=== PATIENT | female | born 1980 | race Caucasian/White ===

== ENCOUNTER 2021-05-23 08:55 | Emergency (ER) | payer OTHER ==
[~2021-05-23 08:55] MED LIST: ATENOLOL25 MG PO; HCTZ12.5 MG PO; LEXAPRO20 MG PO; PRAVACHOL20 MG PO
[2021-05-23 10:07] LABS: AMPHETAMINES NEGATIVE (NEGATIVE); BARBITURATES NEGATIVE (NEGATIVE); ECSTASY (MDMA) NEGATIVE (NEGATIVE); MARIJUANA (THC) NEGATIVE (NEGATIVE); METHADONE NEGATIVE (NEGATIVE); OPIATES NEGATIVE (NEGATIVE); OXYCODONE NEGATIVE (NEGATIVE)
[2021-05-23] MEDS ORDERED: CYCLOBENZAPRINE10 MG PO (10:36)
[2021-05-23] MEDS ORDERED: NAPROXEN500 MG PO (10:36)
[2021-05-23] MEDS ORDERED: RIZATRIPTAN10 M1 PO (10:36)
[2021-05-23] MEDS ORDERED: NORCO 5-325 TA1 EACH PO (10:36)
== END 2021-05-23 10:50 | disposition home or self-care (01) ==
LOC: FER 08:55
PROVIDERS: Internal Medicine
DX: M54.2 Cervicalgia (principal); R51.9 Headache, unspecified; I10 Essential (primary) hypertension; V49.40XA Driver injured in collision with unspecified motor vehicles in traffic accident, initial encounter; Y92.410 Unspecified street and highway as the place of occurrence of the external cause
CPT/HCPCS: 70450; 72125; 80305; J3030

== ENCOUNTER → 2021-07-05 | Day surgery (SDC) | payer OTHER ==
[~2021-07-05] VITALS: Ht 160 cm; Wt 92.1 kg
[~2021-07-05] MED LIST changes: +BISOPROLOL FUMAR5 M1 PO; +CYCLOBENZAPRINE10 MG PO; +MULTI-DAY PLUS1 EAC1 PO; +NAPROXEN500 MG PO; +NORCO 5-325 TA1 EACH PO; +PERCOCET 5-3251 EACH PO; +RIZATRIPTAN10 M1 PO
[2021-07-05 09:55] LABS: HCG (URINE) SCREEN NEGATIVE (NEGATIVE)
[2021-07-05 10:14] LABS: HCT 38.7 % (37.0-47.0); HGB 13.4 g/dl (12.5-16.0); MCH 30.6 pg (25.0-31.0); MCHC 34.6 g/dL (32.0-36.0); MCV 88.4 fL (78.0-100.0); MPV 9.5 fL (6.0-9.5); RBC 4.38 M/uL (4.20-5.40); RDW 12.2 % (11.5-14.0); WBC 5.5 K/uL (4.0-10.5)
[2021-07-05 10:34] LABS: BUN/CREAT RATIO (CALC) 17.9 RATIO; CREATININE 0.56 mg/dL (0.51-0.95); POTASSIUM 3.9 mmol/L (3.5-5.1)
== END | disposition home or self-care (01) ==
LOC: FAS 09:23
PROVIDERS: Obstetrics & Gynecology
DX: N93.9 Abnormal uterine and vaginal bleeding, unspecified (principal); I10 Essential (primary) hypertension; E78.00 Pure hypercholesterolemia, unspecified; Z98.84 Bariatric surgery status; F41.9 Anxiety disorder, unspecified; E78.5 Hyperlipidemia, unspecified; Z79.899 Other long term (current) drug therapy; Z88.5 Allergy status to narcotic agent; Z88.8 Allergy status to other drugs, medicaments and biological substances
CPT/HCPCS: 36415; 80048; 84703; 86850; 86900; 86901; 93005; J1100; J1170; J1885; J2250; J2405; J2704; J3010

== ENCOUNTER 2021-08-12 12:51 | Emergency (ER) | payer OTHER ==
[2021-08-12] MEDS ORDERED: PHENERGAN25 M1 PO (15:13)
== END 2021-08-12 15:37 | disposition home or self-care (01) ==
LOC: FER 12:51
DX: U07.1 COVID-19 (principal); I10 Essential (primary) hypertension
CPT/HCPCS: 99283

== ENCOUNTER 2022-03-10 08:47 | Emergency (ER) | payer OTHER ==
[~2022-03-10 08:47] MED LIST changes: +MEMANTINE HCL1 EACH PO; +MEMANTINE HCL10 MG PO; +PHENERGAN25 M1 PO
[2022-03-10 09:16] LABS: BASOPHIL 0.7 % (0-2); EOSINOPHIL 2.8 % (0-5); HCT 41.4 % (37.0-47.0); HGB 14.1 g/dl (12.5-16.0); LYMPHOCYTE 19.7 % (15-48); MCH 30.8 pg (25.0-31.0); MCHC 34.1 g/dL (32.0-36.0); MCV 90.4 fL (78.0-100.0); MONOCYTE 6.8 % (0-12); MPV 9.3 fL (6.0-9.5); NEUTROPHIL 69.7 % (41-80); NRBC 0; PLT 358 K/uL (150-400); RBC 4.58 M/uL (4.20-5.40); RDW 12.2 % (11.5-14.0); WBC 9.9 K/uL (4.0-10.5)
[2022-03-10 09:35] LABS: BILIRUBIN - TOTAL 0.4 mg/dL (0.2-1.0); BUN/CREAT RATIO (CALC) 13.6 RATIO; CREATININE 0.59 mg/dL (0.51-0.95); POTASSIUM 3.8 mmol/L (3.5-5.1)
== END 2022-03-10 13:40 | disposition home or self-care (01) ==
LOC: FER 08:47
PROVIDERS: Emergency Medicine
DX: R07.89 Other chest pain (principal); I10 Essential (primary) hypertension; Z79.899 Other long term (current) drug therapy
CPT/HCPCS: 36415; 71045; 80053; 84484; 85025; 93005; J1885